=== PATIENT | male | born 1960 | race Caucasian/White ===

== ENCOUNTER 2017-04-12 08:54 | Emergency (ER) | payer OTHER ==
--- NOTE | 2017-04-12 09:11 | EDM.PDOC ---
ED HPI GENERAL MEDICAL PROBLEM - General Stated Complaint: DIZZY,NAUSEATED FROM MEDICATION Time Seen by Provider: 04/12/17 08:59 Source of Information: Reports: Patient History Limitations: Reports: No Limitations - History of Present Illness INITIAL COMMENTS - FREE TEXT/NARRATIVE: Patient states he was seen by his PCP last week and they increased his metformin. They are slowly increasing to a dose of 500 mg twice a day. He states he's noticed the last 3 days he's beginning to have some side effects which he has been told are normal side effects. - GI upset after taking the medication and slight diarrhea. He noticed last night while he was trying to go from the sitting position to standing position he became dizzy and lightheaded. He denies feeling short of breath, diaphoretic, blurred vision, or having any chest discomfort. He states after he started walking around the dizziness went away. This morning when he woke up the same occurred again he was however lying in his bed this time and went to sit up he was having difficulty focusing for he was extremely dizzy he was having difficulty reaching for the lampshade to turn on a light. He needed to attempt a few occasions before becoming successful. He states when he was up ambulating. Was sidestepping for a few steps. He states he is not dizzy now nor is he short of breath lightheaded or dizzy. The symptoms have resolved however he's concerned he believes it might be the metformin. He denies any other changes in his medical health. A similar occurrence happened approximately 6 months ago. Patient went to the chiropractor and had his neck manipulating resolving the issue and he has not had these symptoms since then. Onset: Sudden Severity: Mild Improves with: Reports: Rest Worsens with: Reports: Movement - Related Data Allergies Allergy/AdvReac Type Severity Reaction Status Date / Time No Known Allergies Allergy Verified 04/12/17 09:07 Home Meds: Home Meds Ascorbate Calcium [Vitamin C] 500 mg PO DAILY 04/12/17 [History] Cinnamon Bark [Cinnamon] 500 mg PO DAILY 04/12/17 [History] Fish Oil/Magness-3 Fatty Acids [Fish Oil 1,000 MG] 1 gm PO DAILY 04/12/17 [History ] Garlic 1,000 mg PO DAILY 04/12/17 [History] Hydrochlorothiazide 25 mg PO DAILY 04/12/17 [History] Metoprolol Succinate [Toprol XL] 100 mg PO DAILY 04/12/17 [History] Ramipril 5 mg PO DAILY 04/12/17 [History] Ranitidine HCl 150 mg PO DAILY 04/12/17 [History] metFORMIN HCl [Metformin HCl] 500 mg PO BID 04/12/17 [History] ED ROS GENERAL - Review of Systems Review Of Systems: See Below Constitutional: Reports: No Symptoms HEENT: Reports: No Symptoms Respiratory: Reports: No Symptoms Cardiovascular: Reports: No Symptoms Endocrine: Reports: No Symptoms GI/Abdominal: Reports: No Symptoms : Reports: No Symptoms Musculoskeletal: Reports: No Symptoms Skin: Reports: No Symptoms Neurological: Reports: Dizziness Psychiatric: Reports: No Symptoms Hematologic/Lymphatic: Reports: No Symptoms Immunologic: Reports: No Symptoms ED EXAM, DIZZINESS - Physical Exam Exam: See Below Exam Limited By: No Limitations General Appearance: Alert, WD/WN, No Apparent Distress Nose: Normal Inspection, Normal Mucosa, No Blood Throat/Mouth: Normal Inspection, Normal Lips, Normal Teeth, Normal Gums, Normal Oropharynx, Normal Voice, No Airway Compromise Head Exam: Atraumatic, Normocephalic Vertigo: No: worsens with head to L, worsens with head to R, reproducible, reversible, constant, short duration Neck: Normal Inspection, Supple, Non-Tender, Lymphadenopathy (L) Respiratory/Chest: No Respiratory Distress, Lungs Clear, Normal Breath Sounds, No Accessory Muscle Use, Chest Non-Tender Cardiovascular: Normal Peripheral Pulses, Regular Rate, Rhythm, No Edema, No Gallop, No JVD, No Murmur, No Rub GI/Abdominal: Normal Bowel Sounds, Soft, Non-Tender, No Distention, No Abnormal Bruit, No Mass Neurological: Alert, Normal Mood/Affect, Normal Dorsiflexion, CN II-XII Intact, Oriented x 3 Back Exam: Normal Inspection, Full Range of Motion Extremities: Normal Inspection, Normal Range of Motion, Non-Tender, No Pedal Edema, Normal Capillary Refill Psychiatric: Normal Affect, Normal Mood Skin Exam: Warm, Dry, Intact, Normal Color, No Rash EKG INTERPRETATION Rhythm: NSR Course - Vital Signs Last Recorded V/S: Last Vital Signs Temp 36.3 C 04/12/17 09:08 Pulse 73 04/12/17 09:08 Resp 18 04/12/17 09:08 BP 170/98 H 04/12/17 09:08 Pulse Ox 95 04/12/17 09:08 - Orders/Labs/Meds Orders: Active Orders 24 hr Category Date Time Status EKG Documentation Completion [RC] URGENT Care 04/12/17 09:05 Ordered CBC WITH AUTO DIFF [HEME] Stat Lab 04/12/17 09:05 Ordered CKMB [REF] Stat Lab 04/12/17 09:05 Ordered COMPREHENSIVE METABOLIC PN,CMP [CHEM] Stat Lab 04/12/17 09:05 Ordered TROPONIN I [CHEM] Stat Lab 04/12/17 09:05 Ordered Departure - Departure Time of Disposition: 10:15 Disposition: Home, Self-Care 01 Condition: Good Clinical Impression: Dizziness - Discharge Information Instructions: Dizziness, [id number] Forms: ED Department Discharge Additional Instructions: 1. Increase her water intake 2. Hold off on increasing her metformin until you talk with your PCP on Friday 3. Rise very slowly from a laying to the sitting position. 4. If dizzy and lightheaded do not try to get up stand or walk until the dizziness has resided prevent falls/injuries 5. Follow up with PCP regarding side effects of medication and also onset of dizziness on Friday 6. Return to the emergency department if symptoms do not resolve after sitting up slowly and resting for a minute or if symptoms progress shortness of breath diaphoresis or chest discomfort jaw discomfort - Problem List & Annotations (1) Dizziness SNOMED Code(s): 557388434 Code(s): R42 - DIZZINESS AND GIDDINESS Status: Acute - Problem List Review Problem List Initiated/Reviewed/Updated: Yes - My Orders Last 24 Hours: My Active Orders 04/12/17 09:05 EKG Documentation Completion [RC] URGENT CBC WITH AUTO DIFF [HEME] Stat CKMB [REF] Stat COMPREHENSIVE METABOLIC PN,CMP [CHEM] Stat TROPONIN I [CHEM] Stat - Assessment/Plan Last 24 Hours: My Active Orders 04/12/17 09:05 EKG Documentation Completion [RC] URGENT CBC WITH AUTO DIFF [HEME] Stat CKMB [REF] Stat COMPREHENSIVE METABOLIC PN,CMP [CHEM] Stat TROPONIN I [CHEM] Stat Assessment:: 1. Dizziness upon rising from laying to sitting position. Resolving within a few minutes. Plan: 1. EKG completed- NSR 2. Labs completed - negative findings 3. Discussed with the pt to increase water intake and rise slowly from laying to seated position 4. Hold increasing Metformin any higher until pt makes contact with PCP on Friday to discuss the side effects and ER visit. 5. All questions and concerned answered
[2017-04-12 09:59] LABS: CHLORIDE,CL 100 mmol/L (98-107); SODIUM,NA 136 mmol/L (136-145)
== END 2017-04-12 10:14 | disposition home or self-care (01) ==
LOC: VM.ED 08:54
DX: R42 Dizziness and giddiness (principal); Z79.899 Other long term (current) drug therapy
CPT/HCPCS: 36415; 80053; 82550; 84484; 85025; 93005; 99284